=== PATIENT | female | born 1940 | race Caucasian/White ===

== ENCOUNTER → 2016-07-14 | Outpatient (CLI) | payer MEDICARE, BC ==
[~2016-07-14] MED LIST: ACET-2161 PO; AMIO200T2 PO; BISA-72 PO; CALC-586 PO; FURO-154 PO; IPRA4AER PO; LEVO100T85 PO; MAGN400T6 PO; METO25TA6 PO; MIDO2.5T PO; WARF2TAB6 PO
--- NOTE | 2016-07-14 09:03 | DI ---
Indication:ITS.REASON: R13.19 DYSPHAGIA Procedure:MODIFIED BAR. SWALLOW STUDY MODIFIED BAR. SWALLOW STUDY: Videofluoroscopy was performed in conjunction with a inside sales representative from speech pathology and a separate report and recommendations will be provided. Varying gradations of barium from thin to solid were administered. There was no aspiration noted with any of the consistencies. On the AP view the bolus showed no obvious preference for either side. Impression: No aspiration seen. Please see the speech pathology report for additional details and recommendations. Fluoroscopy dose: 3.27 mGy (Cumulative air kerma) Eyad Mendez RPA/NIC performed this under my direct supervision. .
--- NOTE | 2016-07-14 10:50 | STEVAL ---
Eval Subjective and History Date/Time of Eval DATE: 07/14/16 TIME: 09:01 Medical Diagnosis oropharyngeal dysphagia Treatment Order: Assessment Orientations: x 3, Alert, Cooperative, Motivated Primary Complaint: intermittent difficulty swallowing water, pills, crackers ; pills get "stuck Pain: No Date of Onset of Primary Com: occurring for "at least a year" Clinical Test Results: Modified Barium Swallow Study (MBSS) complete Prior History of This Problem: Yes (for a year) Significant Past Medical Hx: The pt reports history of heart and circulatory problems. She reports that there is no history of neurological disease or diagnosed CVA. She reports that she has a left side weakness, primarily in her left leg for which she does not know the cause. Medical History Form Reviewed: Yes (limited information available) Residence Type: Assisted Living Prior Functional Status: regular diet at baseline Current Functional Status: regular diet Education Subject: Swallowing Strategies Person(s) Educated: Patient Instruction Understanding Demo: Pt. verbalizes understand Education Comment PROJECT DEVELOPMENT ENGINEER educated patient on reasoning for evaluation and the MBSS procedure. Patient was agreeable to evaluation and she indicated that she did not have any questions prior to the procedure. After the MBSS, the pt was educated regarding the results and recommendations. She indicated comprehension and all questions within this PROJECT DEVELOPMENT ENGINEER's scope of practice were answered. Subjective and History Comment: The patient is a 76 y/o female seen today for an outpatient Modified Barium Swallow Study (MBSS) at [facility]. She reports intermittent difficulty swallowing for at least the past year. She reports that she has difficulty swallowing water, crackers, nuts, seeds, and anything that has small pieces. She says that it "feels like things are going down the wrong way, down the windpipe" and that she can feel it when it starts to go down the wrong way and she can stop it. Limited medical history was available per [facility]. The patient reported a history of heart and circulatory problems, but she stated there was no history of CVA or neurological disease. The patient indicated that she notices some left side weakness, especially of her left leg, but that she has never been diagnosed as having a CVA. The patient was viewed in the lateral and the anterior/posterior planes during this evaluation. An oral-mechanism exam was completed prior to this evaluation. The structure and function of the oral mechanism appeared functional for speech and deglutition. No gross weakness or asymmetry was noted. Sequential motion rates were slower than normal and somewhat labored. The patient's dentures were in place for this evaluation. As always, this examination is limited by the fact that it is one assessment at one moment in time, with a limited number of trials. It should be noted, that despite that no laryngeal penetration or aspiration was observed during this study, the study is not able to determine that no laryngeal penetration or aspiration ever occurs. Modified Barium Swallow Lateral View Oral Phase : Lateral View Food Presentation: Thin Liquid via Spoon, Thin Liquid via Cup, Thin Liquid via Straw, Honey Liquid via Spoon, Pureed Food- Pudding, Solid- Eduardo Cracker, Syrup liquid via spoon Labial Closure: No Impairment (WFL) Bolus Formation Under Tongue: Moderate Impairment Mastication Rotary Chew: No Impairment (WFL) Mastication Laterization: No Impairment (WFL) Residue Clearing: Moderate Impairment (moderate residue remaining on the oral tongue) Other Oral Phase Observations: The patient was seated in the dysphagia chair and viewed in the lateral plane. The patient demonstrated adequate labial seal across all consistencies trialed. With all consistences, she exhibited decreased tongue coordination and control, resulting in bolus loss beneath the tongue. She typically swallowed each bolus in two portions and used the time between swallows to re-collect the portion of the bolus that had spilled under her tongue. She exhibited weak tongue base to posterior pharyngeal wall contact, resulting in mild/moderate oral tongue residue after the swallow. Swallow Response Delay: No Impairment (WFL) (pooling to either pyriforms or past valleculae with thin; to valleculae with thicker consistencies) Base of Tongue: Moderate Impairment Epiglottic Coverage: Moderate Impairment Laryngeal Elevation: Mild Impairment Vallecular Retention Clearing: Mild Impairment Pharyn.Wall Residue Clearing: Minimal Impairment Pyriform Sinus Clearing: Mild Impairment Compensatory Strategies: Secondary Swallow (spontaneous second swallow with most boluses) Comments The patient exhibited decreased tongue coordination and control, resulting in bolus pooling to the pyriforms or past the valleculae with thin liquids. Thicker textures pooled in the valleculae prior to the swallow. The pharyngeal swallow was characterized by the following: reduced epiglottic inversion; reduced hyoid movement; reduced laryngeal closure at the airway entrance; mildly reduced UES opening. During this study, no penetration of barium into the airway entrance occurred. There was no aspiration observed across consistencies trialed. Following single swallows of thin liquid, trace-very mild residue remained on the tongue base and in the valleculae after the swallow. Increased residue was present after large consecutive swallows of thin liquids. With thicker textures, there was mild/moderate tongue base and vallecular residue after the swallow and mild pyriform reside. With the use of a spontaneous secondary swallow, a mild amount of the residue was cleared. The residue did not continue to accumulate throughout the study. With thicker textures, the amount of residue in the valleculae and tongue base remained moderate and mild residue remained in the pyriforms. As always, this examination is limited by the fact that it is one assessment at one moment in time, with a limited number of trials. It should be noted, that despite that no laryngeal penetration or aspiration was observed during this study, the study is not able to determine that no laryngeal penetration or aspiration ever occurs. A/P Test Performed The patient was given honey-thick barium bolus and cracker coated with barium paste in the A/P view. A/P View Food Presentation: Honey Liquid via Spoon, Solid- Eduardo Cracker Number Presentations A/P View: 2 A/P View Vocal Cord Function: Good A/P View Residue Found In: Valleculae Right, Valleculae Left, Pyriform Sinus Right, Pyriform Sinus Left A/P View Esophogeal Function: No Impairment (WFL) A/P View Other Observations: Honey thick barium and a cracker coated with barium paste were presented in the A/P view. The boluses moved bilaterally through the pharyx. The boluses appeared to move in a timely manner through the upper portion of the esophagus. See radiology report for further information. There was mild/mod residue in the bilateral valleculae and mild residue in the bilateral pyriforms. Esophoegeal Phase Summary: The barium appeared to move in a timely manner through the upper esophagus. See radiologist's report for futher information. Assessment/Plan of Care Speech Therapy Impressions: The patient presents with mild/mod oropharyngeal dysphagia characterized by the following: reduced tongue coordination and control, resulting in spillage of the bolus beneath the tongue during the oral phase; weak tongue based to posterior pharyngeal wall contact, resulting in tongue base residue; decreased epiglottic inversion; mildly reduced airway closure at the airway entrance; reduced anterior and superior movement of the hyoid; mildly reduced UES opening, resulting in mild pyriform residue. Based on this evaluation, the following recommendations are made: 1. conside neurology consult 2. continue regular diet with thin liquids 3. upright positioning for all intake; pay attention during intake; small bites and sips as needed; consider avoiding foods that cause specific difficulty 4. outpatient swallow therapy with PROJECT DEVELOPMENT ENGINEER after neurological evaluation has been completed. Dysphagia treatment should focus on the following: improving tongue coordination and control; increased tongue base strength; increasing hyoid and laryngeal movement ST Treatment Plan: Swallow Retraining (pt will need Rx for treatment) ST Treatment Plan Frequency: N/A Treatment Plan Duration: N/A Recommended Diet: Based on this evaluation, the following recommendations are made: 1. conside neurology consult 2. continue regular diet with thin liquids 3. upright positioning for all intake; pay attention during intake; small bites and sips as needed; consider avoiding foods that cause specific difficulty 4. outpatient swallow therapy with PROJECT DEVELOPMENT ENGINEER after neurological evaluation has been completed. Dysphagia treatment should focus on the following: improving tongue coordination and control; increased tongue base strength; increasing hyoid and laryngeal movement Date of Visit 07/14/16 Time Visit Began: 08:15 Time Visit Ended: 08:53 ST Assess/Plan of Care: ST Treatment Charge: Swallow Eval Minutes of Individual Therapy: 38 GCODE Swallowing: G8996 - current Severity Modifier: CJ - 20-39% Swallowing: G8997 - goal Severity Modifier: CI - 1-19% Swallowing: G8998 - d/c Severity Modifier: CJ - 20-39% [facility]-PROJECT DEVELOPMENT ENGINEER Jul 14, 2016 09:04
== END ==
LOC: IMA 08:04
PROVIDERS: ATTEND Internal Medicine Sleep Medicine
DX: R13.19 Other dysphagia (principal)
CPT/HCPCS: 74230; 92611; G8996; G8997; G8998

== ENCOUNTER → 2016-09-09 | Outpatient (CLI) | payer MEDICARE, BC ==
[2016-09-09 13:40] LABS: BASOPHILS # (AUTO) 0.1 T/MM3 (0-0.2); BASOPHILS % (AUTO) 1.5 % (0-2); EOSINOPHILS # (AUTO) 0.5 T/MM3 (0-0.5); EOSINOPHILS % (AUTO) 10.1 % (0-4); HCT - HEMATOCRIT 36.3 % (36-46); HGB - HEMOGLOBIN 12.1 GM/DL (12-16); IMMATURE GRANULOCYTE # (AUTO) 0.01 T/MM3 (0.00-0.03); IMMATURE GRANULOCYTE % (AUTO) 0.2 % (0.0-0.5); LYMPHOCYTES # (AUTO) 0.9 T/MM3 (1-4.8); MEAN CORPUSCULAR HGB 32.5 UUG (26-34); MEAN CORPUSCULAR HGB CONC(MCHC 33.3 GM/DL (31-37); MEAN CORPUSCULAR VOLUME 97.6 UM3 (80-100); MONOCYTES # (AUTO) 0.5 T/MM3 (0-0.8); MONOCYTES % (AUTO) 8.6 % (0-9.0); NEUTROPHILS #(AUTO)-ABSOLUTE 3.4 T/MM3 (1.8-7.7); NEUTROPHILS % (AUTO) 63.6 % (33-66); RED BLOOD COUNT 3.72 M/MM3 (4.00-5.20); WBC - WHITE BLOOD COUNT 5.4 T/MM3 (4.5-11.0)
[2016-09-09 13:48] LABS: ALBUMIN 4.7 G/DL (3.5-5.0); ALBUMIN/GLOBULIN RATIO 1.6 RATIO (1.1-2.2); ALKALINE PHOSPHATASE 71 U/L (38-126); ALT (SGPT) 30 U/L (9-52); ANION GAP 13 MEQ/L (5-15); AST (SGOT) 32 U/L (14-36); BUN/CREATININE RATIO 17 RATIO (6-26); CALCIUM 9.7 MG/DL (8.4-10.2); CHLORIDE 98 MEQ/L (98-107); CO2 - CARBON DIOXIDE 27 MEQ/L (22-30); CREATININE 1.3 MG/DL (0.7-1.2); GLOMERULAR FILTRATION RATE 40; GLUCOSE 98 MG/DL (65-110); POTASSIUM 5.2 MEQ/L (3.6-5); SODIUM 138 MEQ/L (134-144); TOTAL PROTEIN 7.6 G/DL (6.3-8.2)
[2016-09-09 14:27] LABS: THYROID STIM HORMONE-TSH 0.18 MIU/L (0.47-4.68)
== END ==
LOC: LAB 13:12
PROVIDERS: ATTEND Internal Medicine Cardiovascular Disease
DX: I48.91 Unspecified atrial fibrillation (principal)
CPT/HCPCS: 36415; 80053; 84443; 85025